=== PATIENT | female | born 1990 | race Caucasian/White ===

== ENCOUNTER 2019-09-27 01:00 | Emergency (ER) | payer OTHER, SELFPAY ==
--- NOTE | ~2019-09-27 | CT_ITS ---
EXAMINATION: CT brain wo con EXAM DATE: 09/27/2019 01:50 INDICATION: Temporary change in awareness. Fever. TECHNIQUE: Spiral CT of the head was performed without contrast. Axial, coronal and sagittal images were reviewed. The dose-length product (DLP) for this examination was 681.00 mGy-cm. The exposure w as tailored according to patient size, and iterative reconstruction (ASIR) was used as additional dos e reduction technique. Comparison is made to prior examination from 05/18/2018. FINDINGS: There is no acute intraparenchymal hemorrhage. No evidence of intraparenchymal brain mass lesion. No evidence of acute infarction. There is no mass effect or midline shift. The ventricles are normal in size. There are no extra-axial collections. There are no acute calvarial fractures. T he orbits are unremarkable. Soft tissue is unremarkable. There is moderate to severe mucoperiosteal thickening within the ethmoid and maxillary sinuses bilaterally, with small amount of fluid in the m axillary sinuses, possible acute sinusitis. IMPRESSION: 1. No acute intracranial findings. 2. Moderate to severe mucoperiosteal thickening within the ethmoid and maxillary sinuses bilaterally , with small amount of fluid in the maxillary sinuses, possible acute sinusitis. Reviewed, dictated and finalized at location A. IMPRESSION: 1. No acute intracranial findings. 2. Moderate to severe mucoperiosteal thickening within the ethmoid and maxilla ry sinuses bilaterally, with small amount of fluid in the maxillary sinuses, po ssible acute sinusitis.
--- NOTE | ~2019-09-27 | XR_ITS ---
EXAMINATION: XR chest 1V portable EXAM DATE: 09/27/2019 02:14 INDICATION: Found unresponsive. Fever. TECHNIQUE: Portable AP frontal chest x-ray was obtained. Comparison is made to prior examination from 08/29/2018. FINDINGS: There is patchy segmental left basilar airspace disease, probably pneumonia and/or aspirati on. The lungs are otherwise clear. There are no pleural effusions. The cardiomediastinal silhouette is within normal limits. There is no pneumothorax suspected. The bones and soft tissues are unrema rkable. IMPRESSION: Patchy left basilar subsegmental pneumonia and/or aspiration. Reviewed, dictated and finalized at location A.
[2019-09-27 01:00] VITALS: BP 125/83; PULSE 106; RESP 24; TEMP 38.1; O2SAT 100
--- NOTE | 2019-09-27 01:07 | ECG_ITS ---
Measurements Intervals [place] Rate: 97 P: 77 NV: 154 QRS: 74 QRSD: 104 T: 50 QT: 377 QTc: 481 Interpretive Statements SINUS RHYTHM WITH SINUS ARRHYTHMIA NONSPECIFIC ST & T-WAVE ABNORMALITY- DIFFUSE LEADS BORDERLINE ECG Electronically Signed On 09-27-2019 7:11:04 CDT by Joseph Benjamin D.O.
--- NOTE | 2019-09-27 01:21 | ED.SEIZURE ---
HPI - Seizure General Chief Complaint: Altered Mental Status Stated Complaint: Possible Seizure Time Seen by Provider: 09/27/19 01:00 Source: patient and other (Sig other) Mode of arrival: EMS Limitations: altered mental status History of Present Illness HPI Narrative: [age] old woman brought in today by EMS after having seizure-like activity. For the last 3 days she has been having cough and cold symptoms in complaining of chest pain. Today she had a fever and took some ibuprofen for the same. EMS found her unresponsive and having convulsions. Police at the scene had administered several doses of Narcan, and 4 more doses were administered by EMS. They noted a slight improvement in her level of consciousness, But she remained nonverbal. They witnessed a total of approximately 5 minutes of convulsions. significant other states that she has had no recent head injuries, has no history of seizures, and is not an IV drug user. She smoked some marijuana today. complaint: possible seizure Onset (ago): hour(s) (1) Description of Episode: loss of consciousness, tonic-clonic movement and post-event confusion Duration of episode: 15 Witnessed: Yes - by EMS Trauma: No Seizure History: No Place: home Possible Precipitating Event: fever Associated symptoms: chest pain, cough, fever/chills, loss of appetite and malaise Treatments prior to arrival: other (Narcan) Related Data Home Medications Medication Instructions Recorded Confirmed No Home Medications 09/27/19 09/27/19 Allergies Allergy/AdvReac Type Severity Reaction Status Date / Time No Known Allergies Allergy Unverified 09/05/16 23:43 Review of Systems Review of Systems: ROS unobtainable: unobtainable due to mental status PMFSH Past Medical History Medical History (Updated 09/27/19 @ 04:16 by Teodoro Crowell MD) Back pain Surgical History Surgical History (Updated 06/26/19 @ 16:50 by Shamir Guerrero MD) deliv NOS-unsp Social History Social History Smoking status: Never smoker Alcohol intake: never Exam Const: Limitations: altered mental status Other: Unresponsive to voice, spontaneous movement and coughing. Responsive to pain. HENMT: Ears: TM's normal bilaterally and EAC's normal Mouth: Yes Normal oral and palatal mucosa present and Yes moist mucous membranes Throat: posterior oropharynx normal and uvula midline Eyes: Conjunctivae: conjunctivae normal Pupils: Equal, round and reactive pupils present Direct Ophthalmoscopy: no photophobia Neck: Neck: normal visual inspection and no lymphadenopathy Resp: Effort & Inspection: normal respiratory effort, not labored and no retractions Auscultation: rales on the left at the base and in the mid lung arriaza Cardio: Rate: tachycardic Rhythm: regular rhythm Other: Distal pulses full and symmetric. GI: Auscultation: normal bowel sounds Other: Soft, no apparent tenderness. Skin: General skin exam: normal color, no jaundice and no pallor Rashes: no rashes Neuro: General: moves all extremities Extrem: General: normal to inspection and no clubbing, cyanosis or edema Other: Cool and dry. Course Course Emergency Course: Discussed with Dr Alexandra. Accepted to [facility]. Transfer Transfered to: [place] Accepting physician: Dr. Alexandra Procedures Lumbar Puncture Lumbar Puncture #1: Lumbar Puncture Date: 09/27/19 Lumbar Puncture Time: 02:25 Time Out Performed: Yes Patient Position: right lateral decubitus Skin Prep: Povidone-Iodine 1% and Asepetic Technique Anesthetic: lidocaine 1% Amount of anesthesia used (mL): 5 Spinal Needle Gauge: 20G Interspace Used: L3-L4 Spinal Fluid: unable to obtain and multiple attempts (3) MDM - Seizure Differential Diagnosis Differential diagnosis: Likely generalized seizure and other (meningitis, sepsis, pneumonia) Lab Data Attestation: I reviewed the yu
[2019-09-27 01:33] LABS: Basophils Absolute Auto 0.03 K/mm3 (0.00-0.10); Basophils Percent Auto 0.3 % (0.0-1.0); Eosinophils Absolute Auto 0.05 K/mm3 (0.02-0.50); Eosinophils Percent Auto 0.5 % (1.0-6.0); Hematocrit 36.5 % (35.0-49.0); Hemoglobin 12.1 g/dL (12.0-15.0); Immature Granulocyte Absolute 0.03 K/mm3 (0.00-0.00); Immature Granulocyte Percent A 0.3 % (0.0-0.0); Lymphocytes Absolute Auto 2.15 K/mm3 (1.10-4.50); Lymphocytes Percent Auto 19.7 % (18.0-42.0); Mean Corpuscular HGB Conc 33.2 g/dL (32.0-36.0); Mean Corpuscular Hemoglobin 27.1 pg (27.0-31.0); Mean Corpuscular Volume 81.8 fL (78.0-102.0); Mean Platelet Volume 9.2 fl (9.2-11.8); Monocytes Absolute Auto 0.65 K/mm3 (0.10-0.90); Neutrophils Percent Auto 73.2 % (50.0-70.0); Platelet Count Result 247 K/mm3 (150-420); Red Blood Count 4.46 M/mm3 (4.20-5.40); Red Cell Distribution Width 12.7 % (11.6-14.4); White Blood Count 10.9 K/mm3 (4.8-10.8)
[2019-09-27] MEDS: SODIUM CHLORIDE 0.9% IV 1,000 ML 999 ML IV CONT ×2 (01:45→03:24)
[2019-09-27 01:46] LABS: Add Urine Microscopic? YES; Appearance Urine Clear (Clear); Bilirubin Urine Negative (Negative); Blood Urine Negative (Negative); Color Urine Yellow (Yellow); Glucose Urine UA Negative (Negative); Ketones Urine Trace (Negative); Leukocyte Esterase Ur Trace LEU/UL (Negative); Nitrate Urine Negative (Negative); Protein Urine Negative (Negative); Specific Grav Ur 1.015 (1.010-1.020)
[2019-09-27 01:50] LABS: Partial Thromboplastin Time 30.2 SEC (22.3-31.6); Prothrombin Time 10.8 Seconds (9.64-11.0)
[2019-09-27 01:53] LABS: Alanine Aminotransferase 22 U/L (14-59); Albumin Level 3.8 g/dL (3.4-5.0); Alkaline Phosphatase 74 U/L (46-116); Anion Gap 14.9 mmol/L (7-16); Aspartate Amino Transferase 22 U/L (15-37); Bilirubin,Total 0.5 mg/dL (0.00-1.00); Blood Urea Nitrogen 7 mg/dL (7-18); CRP 7.7 mg/dL (0.0-0.9); Calcium 8.8 mg/dL (8.5-10.1); Carbon Dioxide 25 mmol/L (21-32); Chloride 100 mmol/L (98-108); Estimated Glomerular Filt Rate > 60; Glucose 93 mg/dL (70-99); Lipase 113 U/L (73-393); Osmolality Calculated 282 mOsm/kg (285-295); Potassium 2.9 mmol/L (3.5-5.1); Sodium 137 mmol/L (136-145)
[2019-09-27 01:55] LABS: Acetaminophen 0 ug/mL (10-30)
[2019-09-27 01:55] LABS: Bacteria Urine 1+ /hpf; RBC Urine 0-2 /hpf (0-2); Squamous Epithelial Cell Urine Few /hpf (Few)
[2019-09-27 01:56] LABS: Ethanol < 3 mg/dL (0-6)
[2019-09-27 01:59] LABS: Amphetamine Screen Urine Positive (Negative); Barbiturate Screen Urine Negative (Negative); Benzodiazepines Screen Urine Negative (Negative); Cannabinoid Screen Urine Positive (Negative); Cocaine Screen Urine Negative (Negative); Methadone Screen Urine Negative (Negative); Opiate Screen Urine Negative (Negative); Phencyclidine Screen Urine Negative (Negative)
[2019-09-27 01:59] LABS: Influenza Control Valid (Valid)
[2019-09-27 02:01] LABS: Pregnancy On Board Control Positive; Urine Pregnancy Test Negative
[2019-09-27 02:02] LABS: Specific Gravity Ur 1.015 (1.010-1.035)
[2019-09-27 02:04] LABS: Lactic Acid Reflex 1.1 mmol/L (0.4-2.0)
--- NOTE | 2019-09-27 02:53 | PC.NURSE ---
0213 pt unresponsive, consent for spinal lumbar puncture from haleigh otero. [address] kim for spinal fluid. during procedure, pt now awake and talking, alert with responses. 0245 call to [facility] as per request of jimena for transfer, spoke with stephane assisted living coordinator. awaiting call back. 0250 pt states doesnt want to go to [facility], its to far away . call to [facility]. spoke with enedina pinon charge nurse avionics shop supervisor. awaiting call back from Dr. Alexandra.
--- NOTE | 2019-09-27 03:26 | PC.NURSE ---
pt remains awake and alert. repositioned in the bed. fiance at bedside. pt denies any methamphetamine usage.
--- NOTE | 2019-09-27 03:27 | PC.NURSE ---
no beds available at this time at [place]. per stephane, investor relations coordinator.
--- NOTE | 2019-09-27 03:33 | PC.NURSE ---
pt fiance to desk, states pt feels like she is going to pass out. pt continues talking alertly. v/s stable. direct observation of patient from nurse desk.
[2019-09-27 03:34] VITALS: BP 106/55; PULSE 97; RESP 20; O2SAT 97
--- NOTE | 2019-09-27 03:35 | PC.NURSE ---
call to [facility], spoke with zi, dr gray will return call [facility].
--- NOTE | 2019-09-27 03:39 | PC.NURSE ---
erp speaking with dr gray.
[2019-09-27 03:57] LABS: Magnesium 1.8 mg/dL (1.8-2.4); Phosphorus 1.8 mg/dL (2.6-4.7)
[2019-09-27 04:14] VITALS: BP 93/56; PULSE 82; RESP 20; TEMP 36.8; O2SAT 98
[2019-09-27] MEDS: KCL 20 MEQ/SW 100 ML 100 ML 50 MEQ IVPB (04:36)
--- NOTE | 2019-09-27 04:39 | PC.NURSE ---
pt complaint of right iv site pain after potassium started. iv rate slowed to 40ml/hr.
--- NOTE | 2019-09-27 04:40 | PC.NURSE ---
attempted to call report to [facility], nurse not available at this time. moving beds for this patient. awaiting call back.
[2019-09-27] MEDS: SODIUM CHLORIDE 0.9% IV 1,000 ML 150 ML IV CONT (04:51)
--- NOTE | 2019-09-27 05:06 | PC.NURSE ---
[facility] called for transfer, awaiting arrival. pt quietly laying per cot. no further complaint of iv site pain related to infusing potassium.
--- NOTE | 2019-09-27 05:22 | PC.NURSE ---
pt sleeping , easily arouses. noted blood pressure, 86/49. cuff repositioned, NS opened wide. erp notified. 100/51
--- NOTE | 2019-09-27 05:39 | PC.NURSE ---
pt loaded to ems cot. report to juan daniel. pt alert and stable
[2019-09-27 05:40] VITALS: BP 98/59; PULSE 94; RESP 20; TEMP 36.8; O2SAT 97
== END 2019-09-27 05:39 | disposition short-term general hospital (02) ==
PROVIDERS: Emergency Provider Emergency Medicine; PCP Family Medicine
DX: R56.9 Unspecified convulsions (principal); J18.9 Pneumonia, unspecified organism
CPT/HCPCS: 62270; 36415; 70450; 71045; 80053; 80307; 81001; 81025; 83605; 83690; 83735; 84100; 85025; 85610; 85730; 86140; 87040; 87086; 87804; 93005; 96361; 96365; 96367; 99285; J0696; J3370; J3480; J7030

== ENCOUNTER 2019-09-27 06:15 | Inpatient (IN) | payer OTHER, SELFPAY ==
--- NOTE | ~2019-09-27 | XR_ITS ---
XR foot LT 2V DATE: 09/27/2019 10:23 INDICATION: Bilateral foot pain TECHNIQUE: AP and lateral views COMPARISON: None FINDINGS: No fracture, dislocation, periosteal reaction or bone destruction. Joint spaces are well p reserved. IMPRESSION: Negative Reviewed, dictated and finalized at location B. IMPRESSION: Negative
--- NOTE | ~2019-09-27 | XR_ITS ---
XR foot RT 2V DATE: 09/27/2019 10:24 INDICATION: Bilateral foot pain. No injury. TECHNIQUE: AP and lateral views COMPARISON: None FINDINGS: No fracture, dislocation, periosteal reaction or bone destruction. Joint spaces are preser bhargav. IMPRESSION: Negative Reviewed, dictated and finalized at location B. IMPRESSION: Negative
[2019-09-27 06:15] VITALS: BP 95/59; PULSE 94; RESP 18; TEMP 36.7; O2SAT 100; BMI 23.4
--- NOTE | 2019-09-27 06:39 | ADMGEN ---
This patient, Kassandra Monahan, was admitted to IMU Room 205-01. Patient/family oriented to hospital policies and general routines including ID bracelet, bed and alarms, visiting hours, pain management, procedures, bathroom and other care routines, personal items, smoking policy, room service/diet, and visiting hours. Valuables list has been completed. Information on how to activate the Rapid Response Team has been discussed. Patient/Family are encouraged to report perceived risks to care and to ask questions if they do not understand what they are told or what they should do.
[2019-09-27 07:53] LABS: Magnesium 1.9 mg/dL (1.6-2.3); Phosphorus 3.1 mg/dL (2.5-4.5)
[2019-09-27 08:00] VITALS: BP 102/57; PULSE 76; PULSE 77; RESP 16; TEMP 36.6; O2SAT 100
[2019-09-27] MEDS: SODIUM CHLORIDE 0.45% 1,000 ML 100 ML IV CONT (08:39)
--- NOTE | 2019-09-27 09:15 | PM.IMHP ---
H&P: HPI History of Present Illness Chief complaint: Seizure/encephalopathy/pneumonia/fever Narrative: Date and Time of Service of History & Physical: September 27, 2019 at 8:55 a.m. Date and Time of Admission Order: September 27, 2019 at 6:46 a.m.. Chief Complaint: Unresponsive, convulsions. History of Present Illness: Kassandra Monahan is a 29 year old female transferred from emergency room at [facility] for direct admission here due to patient being found unresponsive with convulsions. She was brought to the emergency room by EMS. Per her electronic record, EMS did administer multiple doses of Narcan upon arrival. Patient is now awake and alert. She reports she had gone to [place] with her niece yesterday. She then returned home. She reports she did smoke marijuana at home but is unsure as to the source. Patient does mention she also had Staggers that she picked up from the convenience store yesterday. She recalls having had Adderall 1-2 days ago. She denies other substance abuse. She has had a cough for the past month with associated shortness of breath. No recent travel. She reports having fever up to 100.7 yesterday. After smoking the marijuana she does not have any recollection until waking up in the emergency room [place] while lumbar puncture was being performed. She states she did not know she was in the hospital initially. She reports over the past few months having occasional double vision, headache and dizziness. No vision symptoms. She denies current headache and dizziness. She has no some numbness and tingling in the right since for lumbar puncture. She also reports a 1 week history of painful knots in both feet. No current chest pain or chest pressure. No nausea or vomiting. No urinary symptoms. Out of concern for possible seizure activity, patient was transferred from [facility] for further evaluation and treatment. Review of Systems Review of Systems: All systems reviewed & are unremarkable except as noted in HPI and below Constitutional: Constitutional: Reports fever(s) Eyes: Eyes: Denies blurry vision and Reports diplopia (Occasional over past few months) ENT: Denies dysphagia, Denies nasal congestion, Denies nasal discharge and Denies sore throat Cardiovascular: Cardiovascular: Denies no additional cardiovascular complaints, Denies chest pain, Denies leg edema and Reports lightheadedness (Occasional over past few months) Respiratory: Respiratory: Reports cough (X1 month) and Reports dyspnea (Associated with cough x1 month) Gastrointestinal: Gastrointestinal: Denies abdominal pain, Denies nausea and Denies vomiting Genitourinary: Genitourinary: Reports no additional female genitourinary complaints Musculoskeletal: Musculoskeletal: Reports back pain (In area of lumbar puncture) and Denies neck pain Comments: Bilateral foot pain Integumentary/Breasts: Skin/Breast: Denies rash Neurologic: Denies abnormal gait, Denies confusion, Reports headache(s) (Occasional over past month.) and Reports numbness (Right leg) Psychiatric: Psychiatric: Denies anxiety and Denies depression Endocrine: Endocrine: Reports no additional endocrine complaints Hematologic/Lymphatic: Hematologic/Lymphatic: Reports no additional hematologic/lymphatic complaints Allergic/Immunologic: Allergic/Immunologic: Reports no additional allergic/immunologic complaints PMFSH Past Medical History Medical History Back pain Surgical History Surgical History deliv NOS-unsp Family History Family History Mother Diabetes mellitus Father Colon cancer Social History Social History (Updated 09/27/19 @ 09:43 by Natividad Littlejohn MD) Social History: Patient lives with her fiance, fiance's mother and her 3 children ages 9, 7
[2019-09-27 09:24] LABS: Hematocrit 32.7 % (37.0-47.0); Hemoglobin 10.6 g/dL (12.0-15.0); Mean Corpuscular HGB Conc 32.4 g/dl (32-36); Mean Corpuscular Hemoglobin 26.9 pg (26-34); Mean Platelet Volume 10.1 fl (7.4-10.4); Platelet Count Result 200 k/mm3 (150-375); Red Blood Count 3.94 M/mm3 (4.2-5.4); Red Cell Distribution Width 13.1 % (11.5-14.5); White Blood Count 8.8 K/mm3 (4.5-10.0)
[2019-09-27 09:33] LABS: Alanine Aminotransferase 16 U/L (4-35); Alkaline Phosphatase 58 U/L (38-126); Aspartate Amino Transferase 22 U/L (14-36); Bilirubin,Total 0.4 mg/dL (0.2-1.3); Blood Urea Nitrogen 4 mg/dL (7-17); Calcium 7.6 mg/dL (8.4-10.2); Carbon Dioxide 22 mmol/L (22-30); Chloride 112 mmol/L (98-107); Estimated CRCL calculation 121 ml/min; Estimated Glomerular Filt Rate > 60; Glucose 99 mg/dL (65-105); Potassium 3.4 mmol/L (3.4-5.0); Sodium 137 mmol/L (137-145)
[2019-09-27] MEDS: AZITHROMYCIN 250 MG TABLET 500 MG PO (10:48)
[2019-09-27 12:00] VITALS: BP 99/65; PULSE 91; RESP 20; TEMP 37.1; O2SAT 99
[2019-09-27] MEDS: POTASSIUM CHLORIDE 20 MEQ PACKET (FOR LIQUID) 40 MEQ PO (12:24)
--- NOTE | 2019-09-27 13:30 | PC.NURSE ---
Received patient from IMU via bed with IMU staff. Patient restless and c/o back pain from spinal tap . Settled in room and boyfriend at bedside. Rating pain 10/10 when assessed by Apolonia Banda RN. Dr. Littlejohn notified and orders received for Tylenol po. 1415 Patient now resting quietly - sleeping in the bed. Boyfriend remains at bedside.
[2019-09-27] MEDS: ACETAMINOPHEN 325 MG TABLET 650 MG PO (13:56)
[2019-09-27 14:00] VITALS: BP 96/53; PULSE 96; RESP 15; TEMP 37.1; O2SAT 99
--- NOTE | 2019-09-27 15:00 | CONS_ITS ---
DATE OF CONSULTATION: Patient of Dr. Teodoro Alexandra. HISTORY OF PRESENT ILLNESS: This is a 29-year-old right-handed female transferred here from the emergency room of [facility] with the complaint of patient being found unresponsive with convulsion. She was brought to the emergency room by the EMS. Multiple doses of Narcan were administered upon arrival. She was awake, alert by the time she was seen by the hospitalist. She had gone to [place] with her niece yesterday, then returned home. She did smoke marijuana at home, but was unsure to the source. She reported that she picked up from the convenience store yesterday. She recalls having had Adderall 1-2 days ago. She gave no history of any substance abuse. She complained of cough with shortness of breath and fever of 100.7 yesterday. She was unable to recall after smoking marijuana until waking up in the emergency room of [place] where lumbar puncture was being performed. Over the past several months, she has had occasional double vision, headache, and dizziness. She reports 1-week history of painful knots in her both feet, but no acute complaint at the time of initial evaluation by the hospitalist here. She gave no history of any other specific problem. PAST MEDICAL HISTORY: She has history of back pain. PAST SURGICAL HISTORY: delivery. FAMILY HISTORY: Diabetes mellitus in her mother, colon cancer in the father. SOCIAL HISTORY: She does not smoke. She does not drink. MEDICATIONS: She uses marijuana and Adderall. PHYSICAL EXAMINATION: GENERAL: On examination, she was awake, alert, cooperative this morning. VITAL SIGNS: Afebrile with temp of 98, pulse 94, respiration 18, blood pressure 95/59. HEENT: Head normocephalic with no cranial bruit. Ears, nose, throat examination normal. NECK: Supple with no cervical bruit. No thyromegaly. No lymphadenopathy. HEART: Regular. LUNGS: Clear. ABDOMEN: Soft. NEUROLOGICAL: She is awake, alert, able to follow the verbal commands. Speech not dysphasic, not dysarthric, not dysphonic. Pupils round, regular. Zelaya of vision full. Extraocular movements full. Face symmetrical. Tongue midline. Motor examination revealed her to have ability to move both upper and lower extremities. Reflexes symmetrical and plantars downgoing. There is no evidence of gross sensory or cerebellar deficit. LABORATORY DATA: Evaluation up until now in this hospital revealed her to have CBC with WBC 7.3, hemoglobin 12.9, platelet count 273. Sodium 140, potassium 3.6, chloride 104, CO2 of 28, BUN 13, creatinine 0.85, clearance 74, GFR more than 60, glucose 76, osmolality 289, calcium 9, total bilirubin 0.5, AST 29, ALT 30, alkaline phosphatase 61, total protein 8, albumin 3.9. UA clear and toxicology screen 1 salicylates, opiates negative, methadone negative, Tylenol 0, barbiturates negative, phencyclidine negative, amphetamine positive, benzos negative, cocaine screen negative, cannabinoid positive. IMAGING DATA: CT scan in the emergency room negative and chest x-ray negative except the patchy left basilar subsegmental pneumonia versus aspiration. ASSESSMENT AND PLAN: At this stage, she is afebrile, normotensive. No further neurological investigation will be recommended except if necessary, we might obtain the EEG if she does not have any return to the complete mental status. FRANK CASTRO M.D. ITEM REPAIR MANAGER ITEM REPAIR MANAGER D I MT: Pavel EVERETT
--- NOTE | 2019-09-27 17:28 | PC.NURSE ---
This patient, Kassandra Monahan, was transferred to [ [facility]] on 09/27/19 at 1306. Personal belongings sent with patient. Belongings list checked and signed with receiving [ ]. Report given to [Piedad ]. Appropriate documentation sent with patient.
[2019-09-27 18:00] VITALS: BP 111/66; PULSE 75; RESP 16; TEMP 37.2; O2SAT 100
[2019-09-27] MEDS: SODIUM CHLORIDE 0.45% 1,000 ML 75 ML IV CONT (19:27)
[2019-09-27 22:53] VITALS: BP 120/73; PULSE 73; RESP 21; TEMP 36.4; O2SAT 100
[2019-09-28 02:00] VITALS: BP 115/82; PULSE 76; RESP 21; TEMP 36.2; O2SAT 100
[2019-09-28 06:03] LABS: Basophils Percent Auto 0.3 % (0.2-1.2); Blood Urea Nitrogen 4 mg/dL (7-17); Calcium 8.3 mg/dL (8.4-10.2); Carbon Dioxide 26 mmol/L (22-30); Chloride 105 mmol/L (98-107); Eosinophils Absolute Auto 0.1 K/mm3 (0-0.3); Estimated CRCL calculation 102 ml/min; Estimated Glomerular Filt Rate > 60; Glucose 75 mg/dL (65-105); Hematocrit 35.2 % (37.0-47.0); Hemoglobin 11.3 g/dL (12.0-15.0); Immature Granulocyte Absolute 0.02 K/mm3 (0.00-0.031); Immature Granulocyte Percent A 0.3 % (0-0.5); Lymphocytes Absolute Auto 2.13 K/mm3 (0.9-3.2); Lymphocytes Percent Auto 35.2 % (18.3-44.2); Mean Corpuscular HGB Conc 32.1 g/dl (32-36); Mean Corpuscular Hemoglobin 26.8 pg (26-34); Mean Corpuscular Volume 83.4 fl (80-100); Monocytes Absolute Auto 0.4 K/mm3 (0.1-0.6); Monocytes Percent Auto 7.1 % (2.6-8.5); Neutrophils Absolute Auto 3.3 K/mm3 (1.3-6.7); Neutrophils Percent Auto 55.1 % (45.5-73.1); Platelet Count Result 231 k/mm3 (150-375); Potassium 3.8 mmol/L (3.4-5.0); Red Blood Count 4.22 M/mm3 (4.2-5.4); Sodium 137 mmol/L (137-145); White Blood Count 6.1 K/mm3 (4.5-10.0)
[2019-09-28 07:51] VITALS: BP 100/55; PULSE 72; RESP 20; TEMP 36.7; O2SAT 99
[2019-09-28 08:00] VITALS: PULSE 109; RESP 16; O2SAT 98
[2019-09-28] MEDS: AZITHROMYCIN 250 MG TABLET PO (09:33)
--- NOTE | 2019-09-28 09:37 | PM.IMPN ---
Progress Note: A&P Assessment and Plan (1) Convulsions: Qualifiers: Convulsion type: unspecified Qualified Code(s): R56.9 - Unspecified convulsions Code(s): R56.9 - Unspecified convulsions Status: Acute Assessment and Plan: CT brain with no acute changes. Suspect more likely related to substance abuse, illness versus seizure activity. Neurology consulted and appreciate input. No additional testing requested. Patient at baseline. (2) Pneumonia: Qualifiers: Laterality: left Lung location: lower lobe of lung Pneumonia type: due to unspecified organism Qualified Code(s): J18.9 - Pneumonia, unspecified organism Code(s): J18.9 - Pneumonia, unspecified organism Status: Inactive Assessment and Plan: Imaging with patchy infiltrate left base. Has had cough for the past month. WBC was mildly elevated outside hospital with temperature mildly elevated at 100.6. WBC now remains normal. Influenza screen negative. Will continue oral azithromycin. On room air. (3) Hypokalemia: Code(s): E87.6 - Hypokalemia Status: Acute Assessment and Plan: Potassium 3.8 today. Can follow as outpatient as needed. (4) Substance abuse: Code(s): F19.10 - Other psychoactive substance abuse, uncomplicated Status: Acute Assessment and Plan: Urine drug screen positive for cannabinoids and amphetamines both of which patient admits to using. Patient advised on cessation. (5) Bilateral foot pain: Code(s): M79.671 - Pain in right foot; M79.672 - Pain in left foot Status: Acute Assessment and Plan: Xrays negative of both feet. Symptomatic treatment. (6) DVT prophylaxis: Code(s): Z29.9 - Encounter for prophylactic measures, unspecified Status: Acute Assessment and Plan: SCDs. Time Spent With Patient Time with patient: 15 - 25 minutes Subjective Date/time seen: 09/28/19 09:37 Interval history: Date of Service: 09/28/2019. Admitted in transfer from [place] due to convulsions and pneumonia. Feeling better today. No confusion. No chest pain. Has cough but no shortness of breath. No abdominal pain. No nausea or vomiting. Review of Systems Review of Systems: Narrative: Feeling better. Constitutional: Constitutional: Denies chills and Denies fever(s) Eyes: Eyes: Reports no additional eye complaints ENT: Denies dysphagia Cardiovascular: Cardiovascular: Denies chest pain Respiratory: Respiratory: Reports cough and Denies dyspnea Gastrointestinal: Gastrointestinal: Denies abdominal pain, Denies nausea and Denies vomiting Genitourinary: Genitourinary: Reports no additional female genitourinary complaints Musculoskeletal: Musculoskeletal: Reports back pain (from lumbar puncture) Integumentary/Breasts: Skin/Breast: Denies rash Neurologic: Denies confusion, Denies headache(s) and Denies numbness Psychiatric: Psychiatric: Denies anxiety and Denies depression Exam Narrative: Exam Narrative: Awake and alert Const: General: no acute distress HENMT: Mouth: Yes moist mucous membranes Neck: Neck: supple Lymphatic: lymphadenopathy not noted Resp: Auscultation: clear to auscultation bilaterally, no rales, no rhonchi and no wheezes Cardio: Rate: regular rate Rhythm: regular rhythm GI: Inspection: non-distended GI Palp: Yes Soft to palpation and No Tenderness to palpation present (GI) Auscultation: normal bowel sounds Skin: General skin exam: normal color Other: multiple tattoos Neuro: General: No confusion Cognition (Neuro): normal cognition Speech: normal speech Motor exam (neuro): Normal motor muscle tone present throughout Extrem: General: no edema Psych: Mental Status: mental status grossly normal Affect: normal affect Objective Data Vital Signs Vital Signs: Vital Signs - 24 hr 09/27/19 12:00 09/27/19 14:00 09/27/19 18:00 Temperature 98.7 F 98.8 F 98.9 F Pulse Rate 91
[2019-09-28 10:00] VITALS: BP 102/55; PULSE 109; RESP 16; TEMP 37.2; O2SAT 98
--- NOTE | 2019-09-28 10:37 | WPDNEUROPN ---
Progress Note: A&P Assessment and Plan (1) Bilateral foot pain: Code(s): M79.671 - Pain in right foot; M79.672 - Pain in left foot Status: Acute (2) DVT prophylaxis: Code(s): Z29.9 - Encounter for prophylactic measures, unspecified Status: Acute (3) Hypokalemia: Code(s): E87.6 - Hypokalemia Status: Acute (4) Substance abuse: Code(s): F19.10 - Other psychoactive substance abuse, uncomplicated Status: Acute (5) Convulsions: Qualifiers: Convulsion type: unspecified Qualified Code(s): R56.9 - Unspecified convulsions Code(s): R56.9 - Unspecified convulsions Status: Acute (6) Lumbar radiculopathy: Code(s): M54.16 - Radiculopathy, lumbar region Status: Acute (7) Back pain: Qualifiers: Back pain laterality: right Back pain location: low back pain Chronicity: chronic Sciatica laterality: sciatica of right side Sciatica presence: with sciatica Qualified Code(s): M54.41 - Lumbago with sciatica, right side; G89.29 - Other chronic pain Code(s): M54.9 - Dorsalgia, unspecified Status: Acute Additional Plan improving general as well as neuro status Review of Systems Review of Systems: All systems reviewed & are unremarkable except as noted in HPI and below Exam Const: General: comfortable, no acute distress, alert and awake Nutritional Appearance: average body habitus Orientation/consciousness: patient oriented x3 Limitations: no limitations HENMT: Head: normocephalic Ears: hearing grossly normal bilaterally General nose exam: Normal external nose present Face and sinus: normal facial exam Mouth: Yes Normal oral and palatal mucosa present and Yes tongue normal Eyes: General: appearance normal, both eyes and all related structures Visual Arriaza: normal visual arriaza by confrontation Alignment and Position: alignment normal Eyelids: eyelids normal Conjunctivae: conjunctivae normal Sclera: sclerae normal Cornea: corneas normal Pupils: Equal, round and reactive pupils present Neck: Neck: full ROM Resp: Effort & Inspection: normal respiratory effort and able to speak in complete sentences Auscultation: clear to auscultation bilaterally Cardio: Rate: regular rate GI: Auscultation: normal bowel sounds Skin: General skin exam: no rashes or lesions noted Neuro: General: patient oriented x3, tone normal, moves all extremities, no focal motor deficits and CN's II-XI intact bilaterally Motor exam (neuro): 5/5 motor strength present throughout Deep tendon reflexes (DTR's): Right triceps reflex intensity grade: 1+, Left triceps reflex intensity grade: 1+, Rt Biceps (C5, C6): 1+, Left biceps reflex intensity grade: 1+, Right brachioradialis reflex intensity grade: 1+, Left brachioradialis reflex intensity grade: 1+, Right patellar reflex intensity grade: 1+, Left patellar reflex intensity grade: 1+, Right ankle reflex intensity grade: 1+ and Left ankle reflex intensity grade: 1+ Plantar Reflex Responses: downgoing: bilateral Psych: Mental Status: mental status grossly normal Speech and movement: Normal speech and movement present Affect: normal affect Attitude: cooperative Thought process: Normal thought process present Thought content: Yes Normal thought content present Insight: Fair insight present (Psych) Judgement: Fair judgement present (Psych) Objective Data Vital Signs Vital Signs: Vital Signs - 24 hr 09/27/19 12:00 09/27/19 14:00 09/27/19 18:00 Temperature 37.1 C 37.1 C 37.2 C Pulse Rate 91 96 75 Respiratory Rate 20 15 16 Blood Pressure 99/65 L 96/53 L 111/66 Pulse Oximetry 99 99 100 09/27/19 22:53 09/28/19 02:00 09/28/19 07:51 Temperature 36.4 C 36.2 C L 36.7 C Pulse Rate 73 76 72 Respiratory Rate 21 H 21 H 20 Blood Pressure 120/73 115/82 100/55 L Pulse Oximetry 100 100 99 Intake/Output Intake/Output: Intake & Output 09/25/19 09/26/19 09/27/19 09/28/19 23:59 23:59 23:59 23:59
--- NOTE | 2019-09-28 10:47 | PC.NURSE ---
Medication administration edits made to medication scheduled for 09/28/2019 to reflect admin by Nigel Ann RN.
--- NOTE | 2019-09-28 11:01 | PM.DS ---
DS: Diagnosis Admitting Diagnosis Admitting Diagnosis: Unspecified convulsions Discharge Diagnosis (1) Convulsions: Qualifiers: Convulsion type: unspecified Qualified Code(s): R56.9 - Unspecified convulsions Code(s): R56.9 - Unspecified convulsions Status: Acute (2) Pneumonia: Qualifiers: Laterality: left Lung location: lower lobe of lung Pneumonia type: due to unspecified organism Qualified Code(s): J18.9 - Pneumonia, unspecified organism Code(s): J18.9 - Pneumonia, unspecified organism Status: Inactive (3) Hypokalemia: Code(s): E87.6 - Hypokalemia Status: Acute (4) Substance abuse: Code(s): F19.10 - Other psychoactive substance abuse, uncomplicated Status: Acute (5) Bilateral foot pain: Code(s): M79.671 - Pain in right foot; M79.672 - Pain in left foot Status: Acute DS: Summary Hospital Course Reason for hospitalization: Unresponsive, convulsions. Hospital Course: Date of Service of Discharge: September 28, 2019. History of Present Illness: Patient is a 29-year-old female transferred from the emergency room at [facility] for direct admission here due to patient being found unresponsive with convulsions. Patient was brought to the emergency room by EMS. Per her electronic record, EMS did administer multiple doses of Narcan upon their arrival. Patient was able to report she had gone to [place] with her niece on the day before presentation. She then returned home. She reports smoking marijuana at home. She also mentions she had Staggers which she had picked up from the convenience store. She does recall having Adderall 1-2 days earlier. She denies other substance abuse. She has had a cough for the past month with associated shortness of breath. No recent travel. She does report having fever up to 100.7 on the day of presentation. After smoking the marijuana, she does not have any recollection until waking up in the emergency room in [place] while lumbar puncture was being performed. Transfer was requested to our facility due to possibility of seizure. Course in Hospital: Patient was initially admitted to our intermediate care unit. She was already fully awake and alert and oriented x3 by the time of arrival. Telemetry with no acute changes. Patient with no seizure-like activity. CT scan of the brain had been done at [place] which was negative. Imaging with patchy opacity on the left consistent with possible pneumonia. Patient was seen in consultation by neurology with no further evaluations recommended given patient returned to her baseline. She was able to transfer to the medical floor on 09/27/2019 where she remained for the duration of her stay. Patient was started on oral azithromycin for possible pneumonia. She did not require any nebulizer treatments. Lung sounds were clear at the time of discharge. She did remain on room air. She was noted to have hypokalemia while in [place] with potassium 2.9. She did receive IV potassium at that time. Repeat level at our facility at 3.4 with patient given some additional oral replacement. Potassium was normal at the time of discharge. Patient's urine drug screen was positive for cannabinoids and amphetamines both of which she admitted to using. Patient was counseled on substance abuse. Additionally, she did report bilateral foot pain. X-rays of both feet were negative. Symptomatic treatment. With the patient stable, she was discharged home on September 28, 2019. Status at Discharge Cognitive/behavioral status at discharge: Stable. Functional status at discharge: independent ambulation Overall status at discharge: patient is back to baseline Time Spent with Patient Time attestation: Total time spent providing and/or coordinating discharge services: 35 minutes. Time spent: Greater than 30 minutes Exam Narrative: Exam Narrative: Vital Signs Temp
== END 2019-09-28 13:04 | disposition home or self-care (01) | DRG 53 ==
LOC: ANHIMU 07:18 → ANH2MED 14:09 → ANHIMU 10-02 10:43
PROVIDERS: Admitting Provider Family Medicine; PCP Family Medicine; Visit Provider Hospitalist
DX: R56.9 Unspecified convulsions (principal); J18.9 Pneumonia, unspecified organism; E87.6 Hypokalemia; F12.10 Cannabis abuse, uncomplicated; F15.10 Other stimulant abuse, uncomplicated; M79.671 Pain in right foot; M54.16 Radiculopathy, lumbar region; G89.29 Other chronic pain
CPT/HCPCS: 36415; 73620; 80048; 80053; 83735; 84100; 85025; 85027; A9270

== ENCOUNTER 2020-08-06 20:00 | Emergency (ER) | payer OTHER, SELFPAY ==
--- NOTE | 2020-08-06 20:06 | ED.UPPEXIN ---
HPI - Extremity Injury (Upper) General Chief Complaint: Wound/Laceration Stated Complaint: finger injury Time Seen by Provider: 08/06/20 20:06 Source: patient and RN notes reviewed Mode of arrival: ambulatory Limitations: no limitations History of Present Illness complaint: injury to: left and finger Onset (ago): day(s) (5) Other injuries: none Handedness: right Place: other (No injury) Severity: severe Relieving factors: none Exacerbating factors: movement of extremity Associated symptoms: denies other symptoms Related Data Allergies Allergy/AdvReac Type Severity Reaction Status Date / Time No Known Allergies Allergy Unverified 08/06/20 20:39 Review of Systems Review of Systems: All systems reviewed & are unremarkable except as noted in HPI and below PMFSH Past Medical History Medical History Back pain Surgical History Surgical History deliv NOS-unsp History of appendectomy Family History Family History Mother Diabetes mellitus Father Colon cancer Social History Social History Social History: Patient lives with her shanna, shanna's mother and her 3 children ages 9, 7 & 4. She does admit to smoking marijuana and taking non-prescribed Adderall. Denies tobacco use and alcohol use. She is a full code. 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 HENMT: Head: normal to inspection Ears: external ears normal Eyes: Conjunctivae: conjunctivae normal Pupils: Equal, round and reactive pupils present EOM: EOMs intact bilaterally Neck: Neck: normal visual inspection Resp: Effort & Inspection: normal respiratory effort Auscultation: clear to auscultation bilaterally Cardio: Rate: regular rate Rhythm: regular rhythm GI: GI Palp: Yes Soft to palpation and No Tenderness to palpation present (GI) Auscultation: normal bowel sounds Back/Spine/Pelvis: Cervical Spine: cervical ROM normal Thoracic/Lumbar Spine: thoraco-lumbar ROM normal Skin: General skin exam: normal color, elasticity normal and turgor normal Lesions: lesion noted pustule left distal 2nd finger Neuro: General: patient oriented x3, moves all extremities and no focal motor deficits Speech: normal speech Gait exam (Neuro): Normal gait present Extrem: General: no clubbing, cyanosis or edema Psych: Appearance: grossly normal and well kempt Mental Status: mental status grossly normal Affect: normal affect Attitude: cooperative Thought content: Yes Normal thought content present Course Vital Signs Vital signs: Vital Signs Temperature 36.8 C 08/06/20 20:34 Pulse Rate 88 08/06/20 20:34 Respiratory Rate 20 08/06/20 20:34 Blood Pressure 118/81 08/06/20 20:34 Pulse Oximetry 97 08/06/20 20:34 Temperature 36.8 C 08/06/20 20:34 Pulse Rate 85 08/06/20 21:01 Respiratory Rate 20 08/06/20 21:01 Blood Pressure 114/68 08/06/20 21:01 Pulse Oximetry 98 08/06/20 21:01 Procedures Abscess I/D finger: Date of Incision: 08/06/20 Time of Incision: 20:21 Side (if applicable): left Local Anesthetic: lidocaine 1% and none (digital nerve block) Amount of anesthesia used (mL): 3 Technique: incised with #11 blade Irrigation: No Packing used?: none I&D Results
[2020-08-06 20:34] VITALS: BP 118/81; PULSE 88; RESP 20; TEMP 36.8; O2SAT 97
--- NOTE | 2020-08-06 20:37 | PC.NURSE ---
2019 nurse in room with doctor for assessment
[2020-08-06] MEDS: CEPHALEXIN 500 MG CAPSULE PO (20:50)
[2020-08-06] MEDS: IBUPROFEN 600 MG TABLET PO (20:50)
[2020-08-06 21:01] VITALS: BP 114/68; PULSE 85; RESP 20; O2SAT 98
== END 2020-08-06 21:03 | disposition home or self-care (01) ==
PROVIDERS: Emergency Provider Emergency Medicine; PCP Family Medicine
DX: L03.012 Cellulitis of left finger (principal)
CPT/HCPCS: 26010; 87070; 87077; 87186; 87205; 99283; A9270

== ENCOUNTER 2021-07-15 11:14 | Emergency (ER) | payer OTHER, SELFPAY ==
--- NOTE | ~2021-07-15 | XR_ITS ---
EXAMINATION: XR humerus LT DATE: 07/15/2021 12:22 INDICATION: Left mid and upper humerus pain. Fall. TECHNIQUE: 2 views of left humerus were obtained. COMPARISON: None. FINDINGS: Bone alignment is normal. No fracture. Joint spaces are well maintained. IMPRESSION: 1. Normal left humerus. Reviewed, dictated and finalized at location A. BLE MANAGER IMPRESSION: 1. Normal left humerus.
--- NOTE | 2021-07-15 11:54 | ED.UPPEXIN ---
HPI - Extremity Injury (Upper) General Chief Complaint: Extremity Injury, Upper Stated Complaint: left arm injury Source: patient and RN notes reviewed Mode of arrival: ambulatory Limitations: no limitations History of Present Illness HPI narrative: patient was going down the steps at home and missed last 2 steps, she reached out for the railing with her left arm and felt a pop and has had pain ever since. She holds her arm in flexion and abduction on her lap. She points to her humerus as the center of intense pain. Onset (ago): day(s) (2) Other Extremity Injury: Left: arm Other injuries: none Handedness: right Place: home Severity: severe Exacerbating factors: none Context: fall Associated symptoms: denies other symptoms Related Data Allergies Allergy/AdvReac Type Severity Reaction Status Date / Time No Known Allergies Allergy Unverified 07/15/21 12:03 Review of Systems Review of Systems: All systems reviewed & are unremarkable except as noted in HPI and below PMFSH Past Medical History Medical History (Updated 07/15/21 @ 13:04 by Darwin Duncan MD) Back pain Surgical History Surgical History (Updated 07/15/21 @ 11:55 by Darwin Duncan MD) deliv NOS-unsp History of appendectomy History of bilateral tubal ligation Family History Family History Mother Diabetes mellitus Father Colon cancer Social History Social History Social History: Patient lives with her shanna, shanna's mother and her 3 children ages 9, 7 & 4. She does admit to smoking marijuana and taking non-prescribed Adderall. Denies tobacco use and alcohol use. She is a full code. 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 HENMT: Head: normal to inspection Ears: external ears normal Eyes: Conjunctivae: conjunctivae normal Pupils: Equal, round and reactive pupils present EOM: EOMs intact bilaterally Neck: Neck: normal visual inspection Resp: Effort & Inspection: normal respiratory effort Auscultation: clear to auscultation bilaterally Cardio: Rate: regular rate Rhythm: regular rhythm GI: GI Palp: Yes Soft to palpation and No Tenderness to palpation present (GI) Auscultation: normal bowel sounds Back/Spine/Pelvis: Cervical Spine: cervical ROM normal Thoracic/Lumbar Spine: thoraco-lumbar ROM normal Skin: General skin exam: normal color Rashes: no rashes Neuro: General: patient oriented x3, moves all extremities, no meningeal signs and no focal motor deficits Speech: normal speech Gait exam (Neuro): Normal gait present Extrem: General: no clubbing, cyanosis or edema Left upper extremity: shoulder/upper arm tenderness (on palpation Of humerus room, no tenderness over the clavicle, AC joint, glenohumeral joint.), axillary nerve sensory function normal, normal ROM ( Able to do range of motion internal rotation and reach the small of her back) and abnormal ROM pain with active ROM in ABduction Psych: Appearance: grossly normal and well kempt Mental Status: mental status grossly normal Affect: normal affect Attitude: cooperative Thought content: Yes Normal thought content present Course Vital Signs Vital signs: Vital Signs Temperature 36.2 C L 07/15/21 11:56 Pulse Rate 70 07/15/21 11:56 Respiratory Rate 16 07/15/21 11:56 Blood Pressure 100/68 07/15/21 11:56 Pulse Oximetry 98 07/15/21 11:56 Te
[2021-07-15 11:56] VITALS: BP 100/68; PULSE 70; RESP 16; TEMP 36.2; O2SAT 98
--- NOTE | 2021-07-15 12:09 | PC.NURSE ---
[id number] Duncan to examine pt
--- NOTE | 2021-07-15 12:58 | PC.NURSE ---
sling applied to left arm
[2021-07-15] MEDS: KETOROLAC (*BKC) 60 MG/2 ML VIAL IM (13:10)
[2021-07-15 13:25] VITALS: BP 100/78; PULSE 84; RESP 16; TEMP 36.2; O2SAT 98
== END 2021-07-15 13:26 | disposition home or self-care (01) ==
PROVIDERS: Emergency Provider Emergency Medicine; PCP Family Medicine
DX: M79.602 Pain in left arm (principal)
CPT/HCPCS: 73060; 96372; 99283; A4565; J1885

== ENCOUNTER 2021-08-01 12:57 | Outpatient (RCR) | payer OTHER, SELFPAY ==
--- NOTE | 2021-08-01 14:02 | PTOPEVAL ---
Thank you for referring Kassandra Monahan to [facility].? The patient is scheduled to be seen for therapy? ____x/week for ___ weeks. Please review, sign, date and return this plan of care JEFFERSON. I agree with and certify that the following plan of care is medically necessary. Referring Physician Date Admitting Provider: Attending Provider: Nigel Flower, RN CASE MANAGER HOSPICE Referring Provider: *PT Outpatient Evaluation Start: 08/01/21 12:56 Freq: Status: Active Protocol: Document 08/01/21 12:57 ACR (Rec: 08/01/21 14:01 ACR [id number]) Therapy Assessment Status Assessment Status Assessment Status Evaluation Outpatient Past Medical History Neurological History Hx Neurological Disorders No Significant History Cardiovascular History Hx Cardiac Disorders No Significant History Respiratory History Hx Asthma Yes Hx Bronchitis Yes Hx Pneumonia Yes Gastrointestinal History Hx Gastrointestinal Disorders No Significant History Genitourinary History Hx Genitourinary Disorders No Significant History Musculoskeletal History Hx Fractures Yes: left thumb fx Hematological History Hx Hematological Disorders No Significant History Endocrine History Hx Endocrine Disorders No Significant History HEENT History Hx HEENT Disorders No Significant History Integumentary History Hx Skin Disorders No Significant History Reproductive History Hx Section Yes Psychosocial History Hx Psychiatric Disorders No Significant History Pain History History of Any Previous or Ongoing No Significant History Instance of Pain Anesthesia History Hx Anesthesia Reactions No Significant History Evaluation Information Problem Diagnosis L shoulder pain Onset 07/10/21 Subjective Information Patient states that she fell Query Text:As Reported By Patient/ down a couple of steps and got Family her arm stuck in the arm in the railing. She states she felt her bone (pointing to scapular) pop out of place. She states that she went to the ED a few days later and they put her in a sling, but her doctor said not to use the sling. She states that she has the most pain on the back of the arm, the elbow, and in the armpit. Patient states that she has difficulty picking up objects, opening
== END 2021-08-01 23:59 | disposition home or self-care (01) ==
LOC: CHSPT 12:57
PROVIDERS: Visit Provider Nurse Practitioner Family
DX: M25.512 Pain in left shoulder (principal); M79.602 Pain in left arm
CPT/HCPCS: 97014; 97110; 97161; G0283

== ENCOUNTER 2022-03-19 16:13 | Emergency (ER) | payer OTHER, SELFPAY ==
[2022-03-19 16:43] VITALS: BP 134/85; PULSE 106; RESP 20; TEMP 36.6; O2SAT 99
--- NOTE | 2022-03-19 16:47 | ED.SKABFB ---
HPI - Skin/Abscess/Foreign Bdy General Chief complaint: Skin/Abscess/Foreign Body Stated complaint: bee sting on stomach, boil on thigh Time Seen by Provider: 03/19/22 16:16 Source: patient Mode of arrival: ambulatory Limitations: no limitations History of Present Illness HPI narrative: patient presents with a are on her right lower abdomen a small punctate lesion where she apparently was stung by a bee there is no residual this happened last Wednesday with no swelling no erythema no warmth or tenderness, and she also has a small abscess in the perineal area that has been draining that is warm and tender to touch. There is no fever chills no shortness of breath no chest pain. Onset (ago): day(s) Severity: mild Related Data Allergies Allergy/AdvReac Type Severity Reaction Status Date / Time No Known Allergies Allergy Unverified 03/19/22 16:42 Review of Systems Review of Systems: All systems reviewed & are unremarkable except as noted in HPI and below PMFSH Past Medical History Medical History Back pain Surgical History Surgical History deliv NOS-unsp History of appendectomy History of bilateral tubal ligation Family History Family History Mother Diabetes mellitus Father Colon cancer Social History Social History Social History: Patient lives with her shanna, shanna's mother and her 3 children ages 9, 7 & 4. She does admit to smoking marijuana and taking non-prescribed Adderall. Denies tobacco use and alcohol use. She is a full code. 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 Gender identity (if verbalized by the patient): Female Spiritual care concerns: No Exam Const: General: healthy appearing and no acute distress HENMT: Head: normal to inspection Eyes: Conjunctivae: conjunctivae normal Neck: Neck: normal visual inspection Chest: Chest palpation & inspection: normal inspection of the chest Resp: Effort & Inspection: normal respiratory effort Auscultation: clear to auscultation bilaterally Cardio: Rate: regular rate Rhythm: regular rhythm GI: Auscultation: normal bowel sounds Skin: Other: Small lesion as noted above approximately 2x2 with some drainage tender to touch. Extrem: General: normal to inspection Psych: Mental Status: mental status grossly normal Course Course Emergency Course: Will administer 1g IM ceftriaxone otherwise patient afebrile and advised follow-up with her primary Critical Care Time Critical Care Time Critical Care Time: No Discharge Plan Discharge Clinical Impression: Abscess of skin or subcutaneous tissue Patient Disposition: Home, Self-Care Condition: Stable Instructions: Antibiotic Form, Abscess (ED) Additional Instructions: advised follow-up with primary care physician for further evaluation and treatment otherwise take medicine as prescribed. Prescriptions: New amoxicillin-pot clavulanate [Augmentin] 500-125 mg tablet 1 tablet PO TID Qty: 30 0RF Follow-up/Referrals: Kings Driver M.D. [Primary Care Provider] - Time of Disposition: 16:51
[2022-03-19] MEDS: cefTRIAXone 1 GM, LIDOCAINE HCL 1% LOCAL INJ 2.1 ML IM (16:59)
[2022-03-19 17:20] VITALS: BP 117/92; PULSE 83; RESP 18; TEMP 36.4; O2SAT 100
--- NOTE | 2022-03-19 17:20 | PC.NURSE ---
On 03/19/22, the student, [ oscar hernandez], provided care and completed [facility] documentation on this patient. I have reviewed the student's documentation and agree with the findings.
--- NOTE | 2022-03-19 17:31 | PC.NURSE ---
On 03/19/22, the student, [darby hernandez ], provided care and completed [facility] documentation on this patient. I have reviewed the student's documentation and agree with the findings.
== END 2022-03-19 17:20 | disposition home or self-care (01) ==
LOC: CHSED 16:56
PROVIDERS: Emergency Provider Emergency Medicine; PCP Family Medicine
DX: L02.215 Cutaneous abscess of perineum (principal)
CPT/HCPCS: 96372; 99283; J0696

== ENCOUNTER 2023-03-11 19:49 | Emergency (ER) | payer OTHER, SELFPAY ==
[2023-03-11 19:49] VITALS: BP 119/76; PULSE 107; RESP 20; TEMP 37; O2SAT 98
[2023-03-11 20:53] LABS: Influenza A QL RT-PCR Negative (Negative); Influenza B QL RT-PCR Negative (Negative); RSV RNA, RT-PCR Negative (Negative); SARS-CoV-2 RNA PCR Negative (Negative)
--- NOTE | 2023-03-11 21:02 | ED.URI ---
HPI - URI/Sore Throat General Chief Complaint: Upper Respiratory Infection Stated Complaint: UPPER RESPIRATORY Time Seen by Provider: 03/11/23 20:05 Source: patient Mode of arrival: ambulatory Limitations: no limitations History of Present Illness HPI Narrative: this is a 32-year-old female with chest congestion with a cough that is nonproductive with no shortness of breath no fever chills no sore throat no nausea vomiting no chest pain. MD elicited complaint: cough and nasal congestion Related Data Allergies Allergy/AdvReac Type Severity Reaction Status Date / Time No Known Allergies Allergy Unverified 03/19/22 16:42 Review of Systems Review of Systems: All systems reviewed & are unremarkable except as noted in HPI and below PMFSH Past Medical History Medical History Back pain Surgical History Surgical History deliv NOS-unsp History of appendectomy History of bilateral tubal ligation Family History Family History Mother Diabetes mellitus Father Colon cancer Social History Social History Social History: Patient lives with her shanna, shanna's mother and her 3 children ages 9, 7 & 4. She does admit to smoking marijuana and taking non-prescribed Adderall. Denies tobacco use and alcohol use. She is a full code. 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 Gender identity (if verbalized by the patient): Female Spiritual care concerns: No Exam Const: General: healthy appearing Nutritional Appearance: well nourished Orientation/consciousness: patient oriented x3 Limitations: no limitations Eyes: Conjunctivae: conjunctivae normal Resp: Effort & Inspection: normal respiratory effort Cardio: Rate: regular rate Rhythm: regular rhythm Skin: General skin exam: normal color Neuro: General: patient oriented x3 Extrem: General: normal to inspection Psych: Mental Status: mental status grossly normal Course Course Emergency Course: COVID RSV and influenza negative will treat for acute bronchitis will give a dose of Zithromax prior to discharge. Vital Signs Vital signs: Vital Signs Temperature 37.0 C 03/11/23 19:49 Pulse Rate 107 H 03/11/23 19:49 Respiratory Rate 20 03/11/23 19:49 Blood Pressure 119/76 03/11/23 19:49 Pulse Oximetry 98 03/11/23 19:49 Oxygen Delivery Room Air 03/11/23 19:49 Temperature 37.0 C 03/11/23 19:49 Pulse Rate 107 H 03/11/23 19:49 Respiratory Rate 20 03/11/23 19:49 Blood Pressure 119/76 03/11/23 19:49 Pulse Oximetry 98 03/11/23 19:49 Oxygen Delivery Room Air 03/11/23 19:49 MDM - URI/Sore Throat Lab Data Labs: Lab Results 03/11/23 Range/Units 20:12 Influenza A (RT-PCR) Negative (Negative) Influenza B (RT-PCR) Negative (Negative) RSV (RT-PCR) Negative (Negative) SARS-CoV-2 RNA (RT-PCR) Negative (Negative) Critical Care Time Critical Care Time Critical Care Time: No Discharge Plan Discharge Clinical Impression: Bronchitis Patient Disposition: Home, Self-Care Condition: Stable Instructions: Antibiotic Form Additional Instructions: Take medicine as prescribed and follow-up primary care physician if symptoms persist or worsen. Prescriptions: New azithromycin [Zithromax Z-Julian] 250 mg tablet See Rx Instructions .ROUTE .COMPLEX Qty: 6 0RF Rx Instructions: For 250 mg dose pack: take 500 mg today (day 1), then 250 mg for 4 days (days 2-5) ProAir RespiClick 90 mcg/actuation aerosol pow breath a
[2023-03-11] MEDS: AZITHROMYCIN 250 MG TABLET 500 MG PO (21:11)
[2023-03-11 21:22] VITALS: BP 119/76; PULSE 100; RESP 20; TEMP 37.1; O2SAT 98
== END 2023-03-11 21:22 | disposition home or self-care (01) ==
PROVIDERS: Emergency Provider Emergency Medicine; PCP Family Medicine
DX: J40 Bronchitis, not specified as acute or chronic (principal); Z20.822 Contact with and (suspected) exposure to COVID-19
CPT/HCPCS: 87637; 99283; A9270

== ENCOUNTER 2023-05-14 19:54 | Emergency (ER) | payer OTHER, SELFPAY ==
--- NOTE | ~2023-05-14 | XR_ITS ---
EXAMINATION: XR chest 2V 05/14/2023 21:21 INDICATION: Shortness of breath and cough PROCEDURE: 2 view chest COMPARISON: 09/27/2019 FINDINGS: The lungs are clear. The cardiomediastinal silhouette is within normal limits. There are no pleural effusions. There is no pneumothorax suspected. IMPRESSION: 1: NO ACUTE CARDIOPULMONARY DISEASE. Reviewed, dictated and finalized at location A.
[2023-05-14 20:30] VITALS: BP 108/64; PULSE 107; RESP 18; TEMP 36.8; O2SAT 98
[2023-05-14 21:21] LABS: Basophils Absolute Auto 0.03 K/mm3 (0.00-0.10); Basophils Percent Auto 0.3 % (0.0-1.0); Eosinophils Absolute Auto 0.09 K/mm3 (0.02-0.50); Hemoglobin 12.3 g/dL (12.0-15.0); Immature Granulocyte Absolute 0.03 K/mm3 (0.00-0.00); Immature Granulocyte Percent A 0.3 % (0.0-0.0); Lymphocytes Absolute Auto 2.33 K/mm3 (1.10-4.50); Lymphocytes Percent Auto 25.3 % (18.0-42.0); Mean Corpuscular HGB Conc 32.4 g/dL (32.0-36.0); Mean Corpuscular Volume 83.5 fL (78.0-102.0); Mean Platelet Volume 9.4 fl (9.2-11.8); Monocytes Absolute Auto 0.66 K/mm3 (0.10-0.90); Monocytes Percent Auto 7.2 % (2.0-11.0); Neutrophils Absolute Auto 6.1 K/mm3 (1.7-7.2); Neutrophils Percent Auto 65.9 % (50.0-70.0); Platelet Count Result 232 K/mm3 (150-420); Red Blood Count 4.55 M/mm3 (4.20-5.40); Red Cell Distribution Width 13.6 % (11.6-14.4); White Blood Count 9.2 K/mm3 (4.8-10.8)
[2023-05-14 21:23] LABS: Appearance Urine Clear (Clear); Bilirubin Urine Negative (Negative); Blood Urine Negative (Negative); Color Urine Light Yellow (Yellow); Glucose Urine UA Negative (Negative); Ketones Urine Negative (Negative); Leukocyte Esterase Ur 2+ LEU/UL (Negative); Nitrate Urine Negative (Negative); Protein Urine Negative (Negative); Specific Grav Ur 1.015 (1.010-1.020); pH Urine 7.5 (5.0-8.0)
[2023-05-14 21:28] LABS: Add Urine Microscopic? YES; Bacteria Urine 2+ /hpf; RBC Urine 0-2 /hpf (0-2); Squamous Epithelial Cell Urine Moderate /hpf (Few)
[2023-05-14 21:29] LABS: Pregnancy On Board Control Positive; Urine Pregnancy Test Negative
[2023-05-14 21:36] LABS: Alanine Aminotransferase 19 U/L (14-59); Albumin Level 3.4 g/dL (3.4-5.0); Alkaline Phosphatase 68 U/L (46-116); Anion Gap 10 mmol/L (8-16); Aspartate Amino Transferase 17 U/L (15-37); Bilirubin,Total 0.3 mg/dL (0.00-1.00); Blood Urea Nitrogen 8 mg/dL (7-18); Carbon Dioxide 27 mmol/L (21-32); Chloride 102 mmol/L (98-108); Estimated CRCL calculation 87 ml/min; Estimated Glomerular Filt Rate > 60; Glucose 83 mg/dL (70-99); Lipase 66 U/L (16-77); Osmolality Calculated 285 mOsm/kg (285-295); Potassium 3.5 mmol/L (3.5-5.1); Sodium 139 mmol/L (136-145); Total Protein 7.5 g/dL (6.4-8.2)
[2023-05-14 21:37] LABS: Influenza A QL RT-PCR Negative (Negative); Influenza B QL RT-PCR Negative (Negative); RSV RNA, RT-PCR Negative (Negative); SARS-CoV-2 RNA PCR Negative (Negative)
--- NOTE | 2023-05-14 22:03 | ED.URI ---
HPI - URI/Sore Throat General Chief Complaint: Upper Respiratory Infection Stated Complaint: SICK Source: patient Mode of arrival: ambulatory Limitations: no limitations History of Present Illness HPI Narrative: patient is a 33-year-old female with not feeling well for the past few days. She has miss work today. She has a headache and some sinus pain and pressure with nasal congestion. MD elicited complaint: nasal congestion and sinus pain Onset (ago): day(s) (2) Consistency: constant Severity: moderate Pain scale (0-10): 5 Description of mucous: yellow, green and bloody Able to tolerate fluids by mouth: Yes Exacerbating factors: nothing Relieving factors: nothing Associated symptoms: headache, nasal congestion, cough and shortness of breath Treatments prior to arrival: none Related Data Allergies Allergy/AdvReac Type Severity Reaction Status Date / Time No Known Allergies Allergy Verified 05/14/23 21:13 Review of Systems Review of Systems: All systems reviewed & are unremarkable except as noted in HPI and below Constitutional: Constitutional: Reports no additional constitutional complaints Eyes: Eyes: Reports no additional eye complaints ENT: Reports system reviewed and no additional complaints, except as documented Cardiovascular: Cardiovascular: Reports no additional cardiovascular complaints Respiratory: Respiratory: Reports no additional respiratory complaints Gastrointestinal: Gastrointestinal: Reports no additional gastrointestinal complaints Genitourinary: Genitourinary: Reports no additional female genitourinary complaints Musculoskeletal: Musculoskeletal: Reports no additional musculoskeletal complaints Integumentary/Breasts: Skin/Breast: Reports system reviewed and no additional complaints, except as docu Neurologic: Reports system reviewed and no additional complaints, except as documented Psychiatric: Psychiatric: Reports no additional psychiatric complaints Endocrine: Endocrine: Reports no additional endocrine complaints Hematologic/Lymphatic: Hematologic/Lymphatic: Reports no additional hematologic/lymphatic complaints Allergic/Immunologic: Allergic/Immunologic: Reports no additional allergic/immunologic complaints PMFSH Past Medical History Medical History Back pain Surgical History Surgical History deliv NOS-unsp History of appendectomy History of bilateral tubal ligation Family History Family History Mother Diabetes mellitus Father Colon cancer Social History Social History Social History: Patient lives with her shanna, shanna's mother and her 3 children ages 9, 7 & 4. She does admit to smoking marijuana and taking non-prescribed Adderall. Denies tobacco use and alcohol use. She is a full code. 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 Gender identity (if verbalized by the patient): Female Spiritual care concerns: No Exam Const: General: healthy appearing Nutritional Appearance: well nourished Orientation/consciousness: patient oriented x3 HENMT: Head: normal to inspection Ears: external ears normal Face/Nose/Sinus: Normal external nose present Eyes: Conjunctivae: conjunctivae normal Pupils: Equal, round and reactive pupils present EOM: EOMs intact bilaterally Neck: Neck: normal visual inspection Chest: Chest palpation & inspection: normal inspection of the chest Resp: Effort & Inspection: normal respiratory effort Auscultation: clear to auscultation bilaterally, no crackles, no rales and no r
[2023-05-14 22:15] VITALS: BP 112/76; PULSE 93; RESP 16; TEMP 36.4; O2SAT 97
[2023-05-14] MEDS: ACETAMINOPHEN 500 MG TABLET 1000 MG PO (22:27)
[2023-05-14] MEDS: CEPHALEXIN 500 MG CAPSULE PO (22:28)
--- NOTE | 2023-05-17 13:02 | PC.NURSE ---
FINAL URINE RESULTS: no growth, mixed genital bam, no further treatment or action needed.
== END 2023-05-14 22:35 | disposition home or self-care (01) ==
PROVIDERS: Emergency Provider Emergency Medicine; PCP Family Medicine
DX: J01.10 Acute frontal sinusitis, unspecified (principal); N30.00 Acute cystitis without hematuria; F12.90 Cannabis use, unspecified, uncomplicated; F15.90 Other stimulant use, unspecified, uncomplicated; Z20.822 Contact with and (suspected) exposure to COVID-19
CPT/HCPCS: 36415; 71046; 80053; 81001; 81025; 83690; 85025; 87086; 87088; 87637; 99283; A9270

== ENCOUNTER 2023-09-26 13:34 | Emergency (ER) | payer OTHER, SELFPAY ==
[2023-09-26 13:33] VITALS: BP 104/74; PULSE 95; RESP 17; TEMP 36.8; O2SAT 99
--- NOTE | 2023-09-26 14:00 | ED.GENADULT ---
HPI - General Adult General Chief complaint: Upper Respiratory Infection Stated complaint: fever/cough Time Seen by Provider: 09/26/23 14:00 Source: patient Mode of arrival: ambulatory Limitations: no limitations History of Present Illness HPI narrative: 33-year-old white female that works at [employer] started having sore throat muscle aches low-grade fever without cough. Her sons been sick since the same day. Denies any rash or itching bleeding or bruising dizziness or lightheadedness problems eating or drinking walking talking seeing or hearing runny nose or any other complaints. Took ibuprofen for pain she missed work yesterday and needs a note to return tomorrow. Related Data Home Medications Medication Instructions Recorded Confirmed No Home Medications 09/26/23 09/26/23 Allergies Allergy/AdvReac Type Severity Reaction Status Date / Time No Known Allergies Allergy Verified 09/26/23 13:48 Review of Systems Review of Systems: All systems reviewed & are unremarkable except as noted in HPI and below PMFSH Past Medical History Medical History Back pain Surgical History Surgical History deliv NOS-unsp History of appendectomy History of bilateral tubal ligation Family History Family History Mother Diabetes mellitus Father Colon cancer Social History Social History Social History: Patient lives with her shanna, shanna's mother and her 3 children ages 9, 7 & 4. She does admit to smoking marijuana and taking non-prescribed Adderall. Denies tobacco use and alcohol use. She is a full code. 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 Head normocephalic, atraumatic.? Eyes conjunctiva pink sclera nonicteric.? Extraocular movements are intact.? Ears externally normal.? TMs are normal bilaterally. Oropharynx is clear with moist mucous membranes without exudates.? Neck is supple nontender no lymphadenopathy.? Back is nontender.? Lungs are clear.? Heart is regular rate and rhythm without murmurs gallops or rubs.? Chest wall nontender.? Back is nontender. Abdomen is soft and nontender no hepatosplenomegaly or masses no CVA tenderness no abdominal bruits.? Extremities no cyanosis clubbing or edema.? Skin is warm and dry without rashes or lesions.? Neurological patient is alert and oriented x4.? Motor and sensory grossly intact.? Gait is normal. Course Vital Signs Vital signs: Vital Signs Temperature 36.8 C 09/26/23 13:33 Pulse Rate 95 09/26/23 13:33 Respiratory Rate 17 09/26/23 13:33 Blood Pressure 104/74 09/26/23 13:33 Pulse Oximetry 99 09/26/23 13:33 Oxygen Delivery Room Air 09/26/23 13:33 Temperature 36.8 C 09/26/23 13:33 Pulse Rate 95 09/26/23 13:33 Respiratory Rate 17 09/26/23 13:33 Blood Pressure 104/74 09/26/23 13:33 Pulse Oximetry 99 09/26/23 13:33 Oxygen Delivery Room Air 09/26/23 13:33 Medical Decision Making MDM Narrative Medical decision making narrative: Patient was placed in Room # One with her son Flu COVID RSV and strep were all negative Independent Historian: patient Differential Dx includes but not limited to: flu COVID RSV Medications were Reviewed: medications reviewed Medications, treatment, ED course: Independently Interpreted by me: labs independently interpreted by me. External Source Review: Santhosh
[2023-09-26 14:33] LABS: Strep Group A RT-PCR NOT DETECTED (Negative)
[2023-09-26 14:44] LABS: SARS-CoV-2 RNA PCR Negative (Negative)
[2023-09-26 14:49] LABS: Influenza A QL RT-PCR Negative (Negative); Influenza B QL RT-PCR Negative (Negative); RSV RNA, RT-PCR Negative (Negative)
[2023-09-26 15:09] VITALS: BP 105/79; PULSE 90; RESP 17; TEMP 36.8; O2SAT 100
== END 2023-09-26 15:09 | disposition home or self-care (01) ==
PROVIDERS: Emergency Provider Emergency Medicine; PCP Family Medicine
DX: J06.9 Acute upper respiratory infection, unspecified (principal); Z20.822 Contact with and (suspected) exposure to COVID-19
CPT/HCPCS: 87637; 87651; 99283

== ENCOUNTER 2023-10-24 19:00 | Emergency (ER) | payer OTHER, SELFPAY ==
[2023-10-24 19:02] VITALS: BP 149/73; PULSE 110; RESP 18; TEMP 36.3; O2SAT 97
--- NOTE | 2023-10-24 19:14 | ED.GENADULT ---
HPI - General Adult General Chief complaint: Unspecified Stated complaint: HEMRROID Time Seen by Provider: 10/24/23 19:01 Source: patient Mode of arrival: ambulatory Limitations: no limitations History of Present Illness HPI narrative: 33 years old white female complaining of hemorrhoid pain for the last 5 days. She denies any bleeding, worse with any bowel movement, or sitting or standing for long hours. History of hemorrhoid surgery in the past. Patient drove herself to the emergency room. Related Data Allergies Allergy/AdvReac Type Severity Reaction Status Date / Time No Known Allergies Allergy Verified 10/24/23 19:02 Review of Systems Review of Systems: All systems reviewed & are unremarkable except as noted in HPI and below PMFSH Past Medical History Medical History Back pain Surgical History Surgical History deliv NOS-unsp History of appendectomy History of bilateral tubal ligation Family History Family History Mother Diabetes mellitus Father Colon cancer Social History Social History Social History: Patient lives with her shanna, shanna's mother and her 3 children ages 9, 7 & 4. She does admit to smoking marijuana and taking non-prescribed Adderall. Denies tobacco use and alcohol use. She is a full code. Smoking status: Never smoker Second hand tobacco smoke exposure: No Alcohol intake: never Substance use: current Other substance usage details: marijuana and Adderall use Living arrangements: with family Additional occupation/education comments: Gxka-vr-allx mother Gender identity (if verbalized by the patient): Female Spiritual care concerns: No Exam Narrative: General appearance: Well-developed, well-nourished Skin: Normal color Chest and respiratory: Airway patent, no respiratory distress, no accessory muscle use Heart: Regular rate/rhythm Abdomen: Soft, nontender, no organomegaly, quiet bowel sounds, anal exam showed thrombosed hemorrhoids, opened, blood clot hanging on the edge of it, squeezed, blood clot came out with instant relief. Vascular: Normal peripheral pulses, normal capillary refill. Musculoskeletal: Normal range of motion, nontender back Neurologic: Alert and oriented ?3, REGULATORY ANALYST is normal as tested, no gross motor deficit Course Vital Signs Vital signs: Vital Signs Temperature 36.3 C L 10/24/23 19:02 Pulse Rate 110 H 10/24/23 19:02 Respiratory Rate 18 10/24/23 19:02 Blood Pressure 149/73 H 10/24/23 19:02 Pulse Oximetry 97 10/24/23 19:02 Oxygen Delivery Room Air 10/24/23 19:02 Temperature 36.3 C L 10/24/23 19:02 Pulse Rate 110 H 10/24/23 19:02 Respiratory Rate 18 10/24/23 19:02 Blood Pressure 149/73 H 10/24/23 19:02 Pulse Oximetry 97 10/24/23 19:02 Oxygen Delivery Room Air 10/24/23 19:02 Medical Decision Making Vital Signs Vital Signs: Vital Signs Temperature 36.3 C L 10/24/23 19:02 Pulse Rate 110 H 10/24/23 19:02 Respiratory Rate 18 10/24/23 19:02 Blood Pressure 149/73 H 10/24/23 19:02 Pulse Oximetry 97 10/24/23 19:02 Oxygen Delivery Room Air 10/24/23 19:02 Temperature 36.3 C L 10/24/23 19:02 Pulse Rate 110 H 10/24/23 19:02 Respiratory Rate 18 10/24/23 19:02 Blood Pressure 149/73 H 10/24/23 19:02 Pulse Oximetry 97 10/24/23 19:02 Oxygen Delivery Room Air 10/24/23 19:02 Critical Care Time Critical Care Time Critical Care Time: No Discharge Plan Discharge
== END 2023-10-24 20:25 | disposition home or self-care (01) ==
PROVIDERS: Emergency Provider Emergency Medicine; PCP Family Medicine
DX: K64.5 Perianal venous thrombosis (principal)
CPT/HCPCS: 99283

== ENCOUNTER 2024-04-06 17:35 | Emergency (ER) | payer MEDICAID, SELFPAY ==
--- NOTE | ~2024-04-06 | XR_ITS ---
EXAM: XR foot RT min 3V DATE: 04/06/2024 17:48 HISTORY: foot injury . COMPARISON: 09/27/2019, report only. FINDINGS: Normal mineralization. No fracture or dislocation. No lytic or blastic lesion. Joint space s are maintained. No erosion or periosteal change. Soft tissues within normal limits. IMPRESSION: No acute osseous finding in the right foot. Reviewed, dictated and finalized at location K.
[2024-04-06 17:39] VITALS: BP 99/66; PULSE 94; RESP 20; TEMP 36.4; O2SAT 99
[2024-04-06] MEDS: KETOROLAC (*BKC) 60 MG/2 ML VIAL IM (18:01)
--- NOTE | 2024-04-06 18:05 | ED.LOWEXIN ---
HPI - Extremity Injury (Lower) General Chief Complaint: Extremity Injury, Lower Stated Complaint: right foot injury Source: patient Mode of arrival: ambulatory Limitations: no limitations History of Present Illness HPI Narrative: patient injured her right lateral foot on a twig while she was trying to break it with her foot and it is not back injuring her right lateral foot causing some bruising and swelling no other injuries. complaint: foot injury Onset (ago): hour(s) Injury: Right: foot ( bruising and swelling) Type of Injury: blunt Place: street/outdoors Related Data Allergies Allergy/AdvReac Type Severity Reaction Status Date / Time No Known Allergies Allergy Verified 10/24/23 19:02 Review of Systems Review of Systems: All systems reviewed & are unremarkable except as noted in HPI and below PMFSH Past Medical History Medical History Back pain Surgical History Surgical History deliv NOS-unsp History of appendectomy History of bilateral tubal ligation Family History Family History Mother Diabetes mellitus Father Colon cancer Social History Social History Social History: Patient lives with her shanna, shanna's mother and her 3 children ages 9, 7 & 4. She does admit to smoking marijuana and taking non-prescribed Adderall. Denies tobacco use and alcohol use. She is a full code. Smoking status: Never smoker Second hand tobacco smoke exposure: No Alcohol intake: never Substance use: current Other substance usage details: marijuana and Adderall use Living arrangements: with family Additional occupation/education comments: Ftyi-zy-[id number] mother Gender identity (if verbalized by the patient): Female Spiritual care concerns: No Exam Const: General: healthy appearing Nutritional Appearance: well nourished Orientation/consciousness: patient oriented x3 Limitations: no limitations Resp: Effort & Inspection: normal respiratory effort Auscultation: clear to auscultation bilaterally Cardio: Rate: regular rate Rhythm: regular rhythm GI: GI Palp: Yes Soft to palpation Skin: Wounds: wounds noted Other: Bruising lateral aspect of right foot Extrem: General: no pedal edema Course Course Emergency Course: x-ray performed shows no acute fractures, Josias wrap was applied and patient did receive 60mg IM Toradol which improved her pain level. Vital Signs Vital signs: Vital Signs Temperature 36.4 C 04/06/24 17:39 Pulse Rate 94 04/06/24 17:39 Respiratory Rate 20 04/06/24 17:39 Blood Pressure 99/66 L 04/06/24 17:39 Pulse Oximetry 99 04/06/24 17:39 Oxygen Delivery Room Air 04/06/24 17:39 Temperature 36.4 C 04/06/24 17:39 Pulse Rate 94 04/06/24 17:39 Respiratory Rate 20 04/06/24 17:39 Blood Pressure 99/66 L 04/06/24 17:39 Pulse Oximetry 99 04/06/24 17:39 Oxygen Delivery Room Air 04/06/24 17:39 Critical Care Time Critical Care Time Critical Care Time: No Discharge Plan Discharge Clinical Impression: Sprain of right foot Qualifiers: Encounter type: initial encounter Qualified Code(s): S93.601A - Unspecified sprain of right foot, initial encounter Patient Disposition: Home, Self-Care Condition: Stable Instructions: Antibiotic Form, Foot Contusion (ED) Additional Instructions: advised take medication as prescribed and follow up with primary within 1 week if symptoms persist or worsen sooner. Prescriptions: New naproxen 500 mg tablet 500 mg PO BID PRN (Reason: pain) Qty: 14 0RF Follow-up/Referrals: Kings Driver M.D. [Primary Care Provider] - Time of Disposition: 18:09
== END 2024-04-06 18:14 | disposition home or self-care (01) ==
PROVIDERS: Emergency Provider Emergency Medicine; PCP Family Medicine
DX: S93.601A Unspecified sprain of right foot, initial encounter (principal); X58.XXXA Exposure to other specified factors, initial encounter
CPT/HCPCS: 73630; 96372; 99283; J1885

== ENCOUNTER 2024-06-12 17:36 | Emergency (ER) | payer OTHER, SELFPAY ==
--- NOTE | ~2024-06-12 | XR_ITS ---
XR finger 2nd LT min 2V Ordering provider: Pamela Armijo MD History: . trauma 2nd digit . Comparison: None. FINDINGS: BONES: No acute fracture or dislocation. JOINT SPACES: Normal. SOFT TISSUES: Normal. IMPRESSION: No definite acute osseous abnormality. Reviewed, dictated and finalized at location A. US CLERK
[2024-06-12 17:37] VITALS: BP 114/72; PULSE 87; RESP 18; TEMP 36.6; O2SAT 99
--- NOTE | 2024-06-12 18:26 | ED.UPPEXIN ---
HPI - Extremity Injury (Upper) General Chief Complaint: Extremity Injury, Upper Stated Complaint: cut left finger Time Seen by Provider: 06/12/24 18:26 Source: patient Mode of arrival: ambulatory History of Present Illness HPI narrative: accidental trauma to the tip of left index using a hammer. No other injuries, unknown last tetanus shot Related Data Allergies Allergy/AdvReac Type Severity Reaction Status Date / Time No Known Allergies Allergy Verified 10/24/23 19:02 Review of Systems Review of Systems: All systems reviewed & are unremarkable except as noted in HPI and below PMFSH Past Medical History Medical History Back pain Surgical History Surgical History deliv NOS-unsp History of appendectomy History of bilateral tubal ligation Family History Family History Mother Diabetes mellitus Father Colon cancer Social History Social History Social History: Patient lives with her shanna, shanna's mother and her 3 children ages 9, 7 & 4. She does admit to smoking marijuana and taking non-prescribed Adderall. Denies tobacco use and alcohol use. She is a full code. Smoking status: Never smoker Second hand tobacco smoke exposure: No Alcohol intake: never Substance use: current Other substance usage details: marijuana and Adderall use Living arrangements: with family Additional occupation/education comments: [id number]-ry-[id number] mother Gender identity (if verbalized by the patient): Female Spiritual care concerns: No Exam Narrative: General appearance: Well-developed, well-nourished Skin: Normal color Vascular: Normal peripheral pulses, normal capillary refill. Musculoskeletal: left index exam showed skin tear at the tip, palmar side, 3 by 2 mm, superficial Neurologic: Alert and oriented ?3, [employer] [address] [employer] DEVELOPER is normal as tested, no gross motor deficit Course Vital Signs Vital signs: Vital Signs Temperature 36.6 C 06/12/24 17:37 Pulse Rate 87 06/12/24 17:37 Respiratory Rate 18 06/12/24 17:37 Blood Pressure 114/72 06/12/24 17:37 Pulse Oximetry 99 06/12/24 17:37 Oxygen Delivery Room Air 06/12/24 17:37 Temperature 36.6 C 06/12/24 17:37 Pulse Rate 87 06/12/24 17:37 Respiratory Rate 18 06/12/24 17:37 Blood Pressure 114/72 06/12/24 17:37 Pulse Oximetry 99 06/12/24 17:37 Oxygen Delivery Room Air 06/12/24 17:37 MDM - Extremity Injury (Upper) Imaging Data Radiologist's impression: Impressions Finger X-Ray 06/12/24 18:43 IMPRESSION: No definite acute osseous abnormality. Discharge Plan Discharge Clinical Impression: Avulsion of skin of finger Patient Disposition: Home, Self-Care Condition: Stable Instructions: Laceration (ED), Finger Laceration (ED) Additional Instructions: Return if symptoms are worsening , call your family physician for appointment, take Tylenol as as needed for aches and pain, continue home medications. Prescriptions: No Action naproxen 500 mg tablet 500 mg PO BID PRN (Reason: pain) Qty: 14 0RF Follow-up/Referrals: UNKNOWN,DOCTOR [Non-Staff] -
--- NOTE | 2024-06-12 19:10 | PC.NURSE ---
patient report received from MARYCHUY Barrow for continuation of care into the evening shift. patient resting on stretcher without distress, stating she is having pain. RN notified ERP who provided verbal orders.
[2024-06-12] MEDS: IBUPROFEN 600 MG TABLET PO (19:18)
[2024-06-12] MEDS: ACETAMINOPHEN 325 MG TABLET 650 MG PO (19:19)
[2024-06-12] MEDS: TETANUS,DIPHTHERIA,AC PERTUSSIS ADULT 0.5 ML (ADACEL) IM (19:20)
== END 2024-06-12 19:30 | disposition home or self-care (01) ==
PROVIDERS: Emergency Provider Emergency Medicine; PCP Family Medicine
DX: S61.211A Laceration without foreign body of left index finger without damage to nail, initial encounter (principal); Z23 Encounter for immunization; W27.8XXA Contact with other nonpowered hand tool, initial encounter
CPT/HCPCS: 73140; 90471; 90715; 99283; A9270

== ENCOUNTER 2025-03-06 13:09 | Emergency (ER) | payer OTHER, SELFPAY ==
[2025-03-06 13:09] VITALS: BP 104/64; PULSE 86; RESP 16; TEMP 36.7; O2SAT 98
--- NOTE | 2025-03-06 13:36 | ED_ITS ---
HPI - Dental/Oral General Chief complaint: Dental/Oral Stated complaint: dental pain Time Seen by Provider: 03/06/25 13:31 Source: patient Mode of arrival: ambulatory Limitations: no limitations History of Present Illness HPI Narrative: INTERMITTENT DENTAL PAIN FOR YEARS, PATIENT DENIES ANY FEVER, CHILLS, NAUSEA, VOMITING, HEADACHE, DIFFICULTY SWALLOWING OR BREATHING Related Data Allergies Allergy/AdvReac Type Severity Reaction Status Date / Time No Known Allergies Allergy Verified 03/06/25 13:30 Review of Systems Review of Systems: All systems reviewed & are unremarkable except as noted in HPI and below PMFSH Past Medical History Medical History Back pain Surgical History Surgical History History of bilateral tubal ligation History of appendectomy deliv NOS-unsp Family History Family History Mother Diabetes mellitus Father Colon cancer Social History Social History Social History: Patient lives with her shanna, shanna's mother and her 3 children ages 9, 7 & 4. She does admit to smoking marijuana and taking non- prescribed Adderall. Denies tobacco use and alcohol use. She is a full code. 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 Gender identity (if verbalized by the patient): Female Spiritual care concerns: No Exam Narrative: GENERAL APPEARANCE: WELL-DEVELOPED, WELL-NOURISHED SKIN: NORMAL COLOR HEAD: NORMOCEPHALIC, NONTRAUMATIC EYES: CLEAR CONJUNCTIVA ENT: OROPHARYNX NORMAL, WIDESPREAD DENTAL DECAY AND CARIES BILATERALLY, UPPER AND LOWER NECK: SUPPLE, NONTENDER CHEST AND RESPIRATORY: AIRWAY PATENT, NO RESPIRATORY DISTRESS, NO ACCESSORY MUSCLE USE HEART: REGULAR RATE/RHYTHM MUSCULOSKELETAL: NORMAL RANGE OF MOTION, NONTENDER BACK NEUROLOGIC: ALERT AND ORIENTED ?3, F[employer]ATE IS NORMAL TESTED, NO GROSS MOTOR DEFICIT Course Vital Signs Vital signs: Vital Signs Temperature 36.7 C 03/06/25 13:09 Pulse Rate 86 03/06/25 13:09 Respiratory Rate 16 03/06/25 13:09 Blood Pressure 104/64 03/06/25 13:09 Pulse Oximetry 98 03/06/25 13:09 Oxygen Delivery Room Air 03/06/25 13:09 Temperature 36.7 C 03/06/25 13:09 Pulse Rate 86 03/06/25 13:09 Respiratory Rate 16 03/06/25 13:09 Blood Pressure 104/64 03/06/25 13:09 Pulse Oximetry 98 03/06/25 13:09 Oxygen Delivery Room Air 03/06/25 13:09 Critical Care Time Critical Care Time Critical Care Time: No Discharge Plan Discharge Clinical Impression: Dental caries Patient Disposition: Home Condition: Stable Instructions: Antibiotic Form, Trench Mouth (ED), Toothache (ED) Additional Instructions: call a dentist for follow-up Return if symptoms are worsening , call your family physician for appointment, take Tylenol as as needed for aches and pain, continue home medications. Patient Language: Telugu Prescriptions: New penicillin V potassium 500 mg tablet 500 mg PO Q6H Qty: 40 0RF metronidazole 500 mg tablet 500 mg PO Q8H 7 Days Qty: 21 0RF ibuprofen [IBU] 800 mg tablet 800 mg PO TID Qty: 20 0RF Follow-up/Referrals: Kings Driver M.D. [Primary Care Provider, Family Practice] Stand Alone Forms: Work/School Release IP
== END 2025-03-06 13:49 | disposition home or self-care (01) ==
LOC: CHSED 13:45
PROVIDERS: Emergency Provider Emergency Medicine; PCP Family Medicine
DX: K02.9 Dental caries, unspecified (principal)
CPT/HCPCS: 99283